=== PATIENT | female | born 1995 | race Caucasian/White ===

== ENCOUNTER → 2017-08-10 | Outpatient (CLI) | payer OTHER | END | disposition home or self-care (01) | LOC: US 05:58 | DX: R10.13 Epigastric pain (principal); R11.0 Nausea ==

== ENCOUNTER 2017-08-28 09:55 | Emergency (ER) | payer OTHER ==
[~2017-08-28] VITALS: Ht 162.5 cm; Wt 54.4 kg
[2017-08-28 11:03] LABS: BASO # 0.1 10*3/uL (0.0-0.1); BASO % 0.9 % (0.0-1.0); EOS # 0.1 10*3/uL (0.0-0.4); EOS % 1.3 % (1.0-4.0); HEMATOCRIT 38.2 % (37.0-47.0); HEMOGLOBIN 12.7 g/dl (12.0-16.0); LYMPH # 2.4 10*3/uL (1.3-4.4); LYMPH % 31.2 % (27.0-41.0); MEAN CELL VOLUME 88.4 fl (81.0-99.0); MEAN CORPUSCULAR HGB 29.4 pg (27.0-31.0); MEAN CORPUSCULAR HGB CONC 33.2 g/dl (33.0-37.0); MEAN PLATELET VOLUME 11.1 fl (9.6-12.3); MONO # 0.3 10*3/uL (0.1-1.0); MONO % 3.9 % (3.0-9.0); NEUT # 4.8 10*3/uL (2.3-7.9); NEUT % 62.4 % (47.0-73.0); PLATELET COUNT AUTOMATED 302 10*3/uL (130-400); RED BLOOD COUNT 4.32 10*6/uL (4.10-5.10); RED CELL DISTRI WIDTH 13.2 % (0-14.5); WHITE BLOOD COUNT 7.7 10*3/uL (4.8-10.8)
[2017-08-28 11:08] LABS: BILIRUBIN NEGATIVE (NEGATIVE); BLOOD 3+ (NEGATIVE); CLARITY SL CLOUDY (CLEAR); COLOR YELLOW (YELLOW); GLUCOSE NEGATIVE (NEGATIVE); KETONE NEGATIVE (NEGATIVE); LEUKO ESTERASE TRACE (NEGATIVE); NITRITE NEGATIVE (NEGATIVE); PH 6.5 (5.0-9.0); UROBILINOGEN 0.2 E.U./dl (0.2-1.0)
[2017-08-28 11:18] LABS: ALKALINE PHOSPHATASE 42 U/L (45-117); BUN 9 mg/dl (7-24); CHLORIDE 106 mmol/L (98-107); CREATININE 0.85 mg/dL (0.55-1.02); LIPASE 264 U/L (73-393); POTASSIUM 3.4 mmol/L (3.5-5.1); SGOT/AST 23 IU/L (3-35); SGPT/ALT 27 U/L (12-78); SODIUM 141 mmol/L (136-145); TOTAL PROTEIN 8.2 gm/dL (6.4-8.2)
[2017-08-28 11:18] LABS: BACTERIA TRACE; EPITHELIAL CELLS 0-2; MUCOUS 1+; RBC 31-40 rbc/hpf (0-2)
[2017-08-28 11:20] LABS: BETA-HCG, QUANT < 1.0 mIU/mL (1-3)
[2017-08-28] MEDS ORDERED: NORCO 5-325 TA1 EACH PO (12:54)
[2017-08-28] MEDS ORDERED: Motrin,Rufen800 MG PO (12:54)
[2017-08-28] MEDS ORDERED: FLOMAX0.4 MG PO (12:54)
[2017-08-28] MEDS ORDERED: ZOFRAN ODT4 MG SL (12:54)
== END 2017-08-28 13:06 | disposition home or self-care (01) ==
LOC: ED 09:55
PROVIDERS: Emergency Medicine
DX: N20.1 Calculus of ureter (principal); F10.10 Alcohol abuse, uncomplicated

== ENCOUNTER → 2017-09-01 | Outpatient (CLI) | payer OTHER ==
[~2017-09-01] MED LIST: FLOMAX0.4 MG PO; Motrin,Rufen800 MG PO; NORCO 5-325 TA1 EACH PO; ZOFRAN ODT4 MG SL
== END | disposition home or self-care (01) ==
LOC: NM 07:00
DX: K82.8 Other specified diseases of gallbladder (principal)

== ENCOUNTER → 2019-01-18 | Outpatient (CLI) | payer OTHER ==
[~2019-01-18] MED LIST changes: +BIRTH CONTROL PO; +IMITREX50 MG PO; +OMEPRAZOLE20 M2 PO; +PRILOSEC20 M1 PO
== END | disposition home or self-care (01) ==
LOC: NM 06:58
DX: K21.9 Gastro-esophageal reflux disease without esophagitis (principal); K30 Functional dyspepsia

== ENCOUNTER 2021-07-02 10:21 | Emergency (ER) | payer OTHER ==
[~2021-07-02] VITALS: Ht 162.5 cm; Wt 65.8 kg
[2021-07-02] MEDS ORDERED: NAPROXEN250 MG PO (11:51)
[2021-07-02] MEDS ORDERED: CYCLOBENZAPRINE10 MG PO (11:51)
[2021-07-02] MEDS ORDERED: TYLENOL325 M1 PO (11:51)
== END 2021-07-02 12:06 | disposition home or self-care (01) ==
LOC: ED 10:21
DX: M54.2 Cervicalgia (principal); M54.6 Pain in thoracic spine; Z79.899 Other long term (current) drug therapy

== ENCOUNTER → 2021-07-07 | Outpatient (CLI) | payer OTHER ==
[~2021-07-07] MED LIST changes: +CYCLOBENZAPRINE10 MG PO; +NAPROXEN250 MG PO; +TYLENOL325 M1 PO
== END | disposition home or self-care (01) ==
LOC: MRI 13:50
PROVIDERS: ATTEND Internal Medicine
DX: M54.2 Cervicalgia (principal)

== ENCOUNTER → 2021-08-20 | Outpatient (CLI) | payer OTHER | END | disposition home or self-care (01) | LOC: CT 00:06 | PROVIDERS: ATTEND Internal Medicine | DX: G08 Intracranial and intraspinal phlebitis and thrombophlebitis (principal); R51.9 Headache, unspecified; R11.2 Nausea with vomiting, unspecified; M54.2 Cervicalgia ==

== ENCOUNTER 2021-08-21 16:32 | Emergency (ER) | payer OTHER ==
[2021-08-21 17:10] LABS: BASO # 0.1 10*3/uL (0.0-0.1); BASO % 0.9 % (0.0-1.0); EOS # 0.4 10*3/uL (0.0-0.4); EOS % 4.2 % (1.0-4.0); HEMATOCRIT 41.5 % (37.0-47.0); LYMPH # 3.5 10*3/uL (1.3-4.4); LYMPH % 37.5 % (27.0-41.0); MEAN CELL VOLUME 88.1 fl (81.0-99.0); MEAN CORPUSCULAR HGB 29.1 pg (27.0-31.0); MEAN PLATELET VOLUME 10.5 fl (9.6-12.3); MONO # 0.6 10*3/uL (0.1-1.0); MONO % 6.7 % (3.0-9.0); NEUT # 4.7 10*3/uL (2.3-7.9); NEUT % 50.4 % (47.0-73.0); PLATELET COUNT AUTOMATED 429 10*3/uL (130-400); RED BLOOD COUNT 4.71 10*6/uL (4.10-5.10); RED CELL DISTRI WIDTH 15.1 % (0-14.5); WHITE BLOOD COUNT 9.4 10*3/uL (4.8-10.8)
[2021-08-21 17:19] LABS: ACT PARTIAL THROMBO TIME 23.8 SECONDS (20.0-32.1); INTERNATIONAL NORM RATIO 0.9 (2.0-3.5)
[2021-08-21 17:24] LABS: ALBUMIN 3.9 gm/dl (3.1-4.5); ALKALINE PHOSPHATASE 69 U/L (45-117); BUN 13 mg/dl (7-24); CHLORIDE 108 mmol/L (98-107); CREATININE 0.94 mg/dL (0.55-1.02); POTASSIUM 3.6 mmol/L (3.5-5.1); SGOT/AST 18 IU/L (3-35); SGPT/ALT 36 U/L (12-78); SODIUM 140 mmol/L (136-145); TOTAL PROTEIN 8.3 gm/dL (6.4-8.2)
== END 2021-08-24 12:45 | disposition short-term general hospital (02) ==
LOC: ED 16:32
PROVIDERS: Emergency Medicine
DX: G08 Intracranial and intraspinal phlebitis and thrombophlebitis (principal); Z79.899 Other long term (current) drug therapy

== ENCOUNTER → 2021-09-20 | Outpatient (CLI) | payer OTHER ==
[2021-09-20 13:03] LABS: INTERNATIONAL NORM RATIO 2.5 (2.0-3.5)
== END | disposition home or self-care (01) ==
LOC: LAB 12:15
PROVIDERS: ATTEND Psychiatry & Neurology Neurology
DX: G08 Intracranial and intraspinal phlebitis and thrombophlebitis (principal)

== ENCOUNTER → 2022-04-07 | Outpatient (CLI) | payer OTHER ==
[2022-04-20 15:15] LABS: BETA-2 GLYCOPROTEIN I AB,IGG SEE REPORT
[2022-04-20 15:16] LABS: ANTI-THROMBIN III ACTIVITY SEE REPORT; ANTICARDIOLIPIN AB, IGG, QN SEE REPORT; ANTICARDIOLIPIN AB, IGM, QN SEE REPORT; BETA-2 GLYCOPROTEIN I AB,IGM SEE REPORT; HEXAGONAL PHASE PHOSPHOLIPID SEE REPORT; PROTEIN S, FREE SEE REPORT
== END | disposition home or self-care (01) ==
LOC: LAB 16:58
PROVIDERS: ATTEND Internal Medicine Hematology & Oncology
DX: G08 Intracranial and intraspinal phlebitis and thrombophlebitis (principal)